=== PATIENT | female | born 1950 | race American Indian/Alaskan Native ===

== ENCOUNTER 2016-12-03 21:23 | Emergency (ER) | payer MEDICARE ==
[2016-12-03 22:23] LABS: Basophils % (Auto) 0.4 % (0.0-1.8); Eosinophils % (Auto) 1.4 % (0.0-4.3); Hematocrit 37.5 % (30.3-42.9); Hemoglobin 12.1 gm/dl (10.1-14.3); Mean Corpuscular HGB Conc 32 % (30-34); Mean Corpuscular Volume 79 fl (79-97); Platelet Count 196 K/mm3 (140-440); Red Blood Count 4.76 M/mm3 (3.65-5.03); Red Cell Distribution Width 14.4 % (13.2-15.2); White Blood Count 4.2 K/mm3 (4.5-11.0)
[2016-12-03 22:25] LABS: Mean Corpuscular Hemoglobin 25 pg (28-32)
[2016-12-03 22:32] LABS: Urine Drugs of Abuse Note Disclamer
[2016-12-03 22:39] LABS: Anion Gap 17 mmol/L; BUN/Creatinine Ratio 25.71; Blood Urea Nitrogen 18 mg/dL (7-17); Carbon Dioxide 28 mmol/L (22-30); Glucose 93 mg/dL (65-100); Potassium 4.5 mmol/L (3.6-5.0); Sodium 139 mmol/L (137-145)
[2016-12-03 22:58] LABS: Bilirubin,Urine NEG (Negative); Blood,Urine NEG (Negative); Ketones,Urine NEG (Negative); Leukocyte Esterase,Urine SM (Negative); Mucus,Urine FEW /HPF; Nitrite,Urine NEG (Negative); Protein,Urine <15 mg/dL mg/dL (Negative); Urobilinogen,Urine < 2.0 mg/dL (<2.0)
--- NOTE | 2016-12-03 23:58 | Emergency Department Report ---
HPI - General Chief Complaint: Psych Time Seen by Provider: 12/03/16 22:43 - HPI HPI: This is a 66-year-old Afro-[place] female presents to the emergency department from [place]. The main issue is that the patient was told that [place] wanted to become her payee residence and possible psychiatric care and the patient refused. For this reason the patient was brought to the emergency department. The patient says she does have a history of schizoaffective disorder but that she does not feel that she has been acting appropriately and that her main issue is that she is homeless. The patient does have some pressured speech in which she gives a large amount of detail about her past which she says includes incarceration, lawsuits against the government, contention against child custody. However the patient denies any current auditory or visual hallucinations, homicidal or suicidal ideations. There is no 1013 or note from [facility] saying that there was any type of event where the patient presented as violent or and appropriate. ED Past Medical Hx - Past Medical History Hx Psychiatric Treatment: Yes (schiz affective disorder) - Surgical History Past Surgical History?: No - Social History Smoking Status: Never Smoker Substance Use Type: None ED Review of Systems ROS: Stated complaint: MH EVAL Other details as noted in HPI Comment: All other systems reviewed and negative Constitutional: denies: chills, fever Eyes: denies: eye pain, eye discharge, vision change ENT: denies: ear pain, throat pain Respiratory: denies: cough, shortness of breath, wheezing Cardiovascular: denies: chest pain, palpitations Gastrointestinal: denies: abdominal pain, nausea, diarrhea Genitourinary: denies: urgency, dysuria, discharge Musculoskeletal: denies: back pain, joint swelling, arthralgia Skin: denies: rash, lesions Neurological: denies: headache, weakness, paresthesias Psychiatric: denies: anxiety, depression, auditory hallucinations, visual hallucinations, homicidal thoughts, suicidal thoughts Physical Exam - Physical Exam Vital Signs: Vital Signs 12/03/16 21:34 Temperature 98.5 F Pulse Rate 103 H Respiratory 16 Rate Blood Pressure 155/96 O2 Sat by Pulse 100 Oximetry Physical Exam: GENERAL: The patient is well-developed well-nourished. HEENT: Normocephalic. Atraumatic. Extraocular motions are intact. Patient has moist mucous membranes. Pupils equal reactive to light bilaterally. NECK: Supple. Trachea is midline. CHEST/LUNGS: Clear to auscultation. There is no respiratory distress noted. HEART/CARDIOVASCULAR: Regular. There is no tachycardia. There is no gallop rub or murmur. ABDOMEN: Abdomen is soft, nontender. Patient has normal bowel sounds. There is no abdominal distention. SKIN: There is no rash. There is no edema. There is no diaphoresis. NEURO: The patient is awake, alert, and oriented. The patient is cooperative. The patient has no focal neurologic deficits. The patient has no slurred speech and has normal gait. Cranial nerves II through XII grossly intact. MUSCULOSKELETAL: There is no tenderness or deformity. There is no limitation range of motion. There is no evidence of acute injury. PSYCH: Patient has some pressured speech but otherwise is calm and appropriate. ED Course Vital Signs 12/03/16 21:34 Temperature 98.5 F Pulse Rate 103 H Respiratory 16 Rate Blood Pressure 155/96 O2 Sat by Pulse 100 Oximetry ED Medical Decision Making - Lab Data Result diagrams: 12/03/16 22:10 12/03/16 22:10 - Medical Decision Making This is a 66-year-old female presents to the emergency department from [place] for a mental health evaluation. Patient has a history of schizoaffective disorder. The patient does have some pressured speech and tells in great detail about her past that includes statements about incarceration and lawsuits. However the patient is AAO 3, cognizant, up-to- date on current events, and otherwise calm and appropriate. She denies any auditory or visual hallucinations, homicidal or suicidal ideations. Patient says that she was at [place] and they wanted to become the payee over her social security payments. When she refused, she was sent here. She says that she is homeless and her main concern is that she has nowhere to go. Despite the patient's pressured speech she does not appear to be a candidate to be made a 1013 requiring inpatient psychiatric treatment. The patient is aware that she has a psychiatric history but is not interested in medications. Since the patient is currently homeless and this is more of a discharge planning issue, the patient will be kept in the emergency department overnight and will have a case management/director social service consult in the morning to see if there are any resources replacement can be provided. Critical Care Time: No Critical care attestation.: If time is entered above; I have spent that time in minutes in the direct care of this critically ill patient, excluding procedure time. ED Disposition Clinical Impression: Discharge planning issues, Homeless, History of schizoaffective disorder Hypertension Qualifiers: Hypertension type: essential hypertension Qualified Code(s): I10 - Essential ( primary) hypertension Disposition: DISCHARGED TO HOME OR SELFCARE Is pt being admited?: No Condition: Good Instructions: Hypertension (ED) Additional Instructions: On top of the resources given to by the case management team, I have given you a referral for [facility] for follow-up regarding your elevated blood pressure and establishing care for your primary care needs. Return to the emergency department with any worsening of your symptoms or any acute distress. Referrals: PRIMARY MD LIZ [Primary Care Provider] - 3-5 Days [facility] [Outside] - 3-5 Days Time of Disposition: 00:47
[2016-12-05 08:04] VITALS: BP 116/71
== END 2016-12-05 12:15 | disposition home or self-care (01) ==
LOC: EEVIPCON 21:23 → ED 21:23
DX: F25.9 Schizoaffective disorder, unspecified (principal); Z59.0 Homelessness; R03.0 Elevated blood-pressure reading, without diagnosis of hypertension
CPT/HCPCS: 36415; 80048; 80307; 81001; 85025; 99284; G0480; 80320